=== PATIENT | male | born 1970 | race Caucasian/White ===

== ENCOUNTER → 2018-03-10 06:38 | Outpatient (CLI) | payer OTHER, SELFPAY ==
--- NOTE | 2018-03-10 06:46 | CT_ITS ---
STUDY: CT ABDOMEN AND PELVIS WITH AND WITHOUT CONTRAST REASON FOR EXAM: Male, 48 years old. Right groin mass RADIATION DOSAGE (If Supplied By Facility): CTDIvol = ( 23.21 ) mGy, DLP = ( 2510.3 ) mGycm TECHNIQUE: Transaxial images were obtained from the dome of the diaphragm to the symphysis pubis without oral contrast. 100 ml of Isovue 300 contrast was administered. Sagittal and coronal images were reconstructed. Individualized dose optimization techniques were used for this CT. COMPARISON: None. FINDINGS: The visualized lung bases are clear. The visualized portions of the heart and pericardium are within normal limits. There are no calcified gallstones present. The liver is within normal limits. There are no suspicious hepatic lesions. The spleen is normal in size. The pancreas is within normal limits. The adrenal glands are within normal limits. There are no renal or ureteral stones. There is no hydronephrosis. There are no focal renal lesions. Normal visualized stomach. There is no bowel obstruction or inflammation. The appendix is visualized and appears normal. The aorta is normal in caliber. There is no abdominal or pelvic free air, free fluid, fluid collection or lymphadenopathy. There are no destructive osseous lesions. There is no abnormal soft tissue mass identified in the right groin. CT/CT Abd/Pelvis W/WO Contrast IMPRESSION: Unremarkable CT of the abdomen and pelvis performed without and with contrast. No soft tissue mass identified. Electronically Signed: Star Bedoya, at 18:53 EDT Tel , Service support ,
[2018-03-10 08:00] LABS: PSA,Total - Annual Screen 2.16 ng/mL (0.00-4.00)
== END ==
PROVIDERS: Family Provider Family Medicine; PCP Family Medicine; Visit Provider Nurse Practitioner Adult Health
DX: R19.09 Other intra-abdominal and pelvic swelling, mass and lump (principal); R10.2 Pelvic and perineal pain; Z87.442 Personal history of urinary calculi; Z12.5 Encounter for screening for malignant neoplasm of prostate
CPT/HCPCS: 36415; 74178; 84153; Q9967; G0103

== ENCOUNTER → 2018-04-29 10:11 | Outpatient (CLI) | payer OTHER, SELFPAY ==
[2018-04-29 12:43] LABS: Erythrocyte Sedimentation Rate 9 mm/hr (0-20)
[2018-04-29 12:53] LABS: Vitamin B12 563 pg/mL (211-911); Vitamin D,25 Hydroxy 22.5 ng/mL (29.95-100.01)
[2018-04-29 12:54] LABS: Absolute Lymphocyte Count 1.22 X10^3/ul (0.83-4.51); Absolute Neutrophil Count 2.8 X10^3/uL (2.0-7.7); Basophil# 0.04 X10^3/uL; Basophil% 0.9 % (0-1); Eosinophil# 0.15 X10^3/uL; Eosinophils% 3.4 % (0-5); Hemoglobin 14.5 g/dl (13.0-16.5); Lymphocyte # 1.22 X10^3/ul (4.0); Lymphocyte % 27.4 % (19-41); Mean Corp Hgb Conc 33.7 g/gl (32-36); Mean Corpuscular Hgb 29.7 pg (27.0-32.0); Mean Corpuscular Volume 87.9 fL (80-94); Mean Platelet Vol. 9.8 fl (6.2-12.0); Monocyte# 0.27 X10^3/uL; Monocyte% 6.1 % (0-10); Neutrophil # 2.77 X10^3/uL (2.7-7.7); Neutrophil % 62.2 % (47-70); Platelet Count 172 K/mm3 (150-450); RBC Distribution Width CV 12.8 % (11.6-14.6); RBC Distribution Width SD 40.9 fl (35.1-43.9); Red Blood Count 4.89 M/mm3 (4.6-6.2); White Blood Count 4.5 K/mm3 (4.4-11.0)
[2018-04-29 12:57] LABS: POSITIVE COUNT NO; POSITIVE DIFFERENTIAL NO; POSITIVE MORPHOLOGY NO
[2018-04-29 12:59] LABS: ALB/GLOB Ratio 1.1 RATIO (0.9-2.4); AST(SGOT) 20 U/L (15-37); Alanine Aminotransfer ALT/SGPT 25 U/L (16-61); Albumin, Serum 3.7 g/dL (3.2-5.0); Alkaline Phosphatase 49 U/L (45-117); Anion Gap 6 (5-15); BUN 15 mg/dL (7-18); BUN/Creat Ratio 13.3 RATIO (10-20); Calcium,Total 9.2 mg/dL (8.5-10.1); Chloride 107 mmol/L (98-107); Creatinine, Serum 1.13 mg/dL (0.70-1.30); EST Glomerular Filtration Rate 73 mL/min (>60); Est Glom Filt Rate - Afr Amer 88 mL/min (>60); Globulin 3.5 g/dL (2.2-4.2); Glucose 92 mg/dL (74-106); Iron 71 ug/dL (65-175); Potassium 4.2 mmol/L (3.5-5.1); Protein, Total 7.2 g/dL (6.4-8.2); Sodium Level 140 mmol/L (136-145); Thyroid Stim Hormone (TSH) 4.02 uIU/mL (0.358-3.74)
[2018-04-30 10:25] LABS: Free T3 2.6 pg/mL (2.18-3.98)
== END ==
PROVIDERS: Family Provider Family Medicine; PCP Family Medicine; Visit Provider Family Medicine
DX: R10.31 Right lower quadrant pain (principal); R53.83 Other fatigue; R79.89 Other specified abnormal findings of blood chemistry
CPT/HCPCS: 36415; 80053; 82306; 82533; 82607; 83540; 84439; 84443; 84481; 85025; 85652

== ENCOUNTER → 2018-09-24 11:38 | Outpatient (CLI) | payer OTHER, SELFPAY ==
[2018-09-24 14:21] LABS: Free T3 2.8 pg/mL (2.18-3.98); T4 Free Direct 0.88 ng/dL (0.76-1.46); Thyroid Stim Hormone (TSH) 2.62 uIU/mL (0.358-3.74)
== END ==
PROVIDERS: Family Provider Family Medicine; PCP Family Medicine; Visit Provider Family Medicine
DX: R53.83 Other fatigue (principal)
CPT/HCPCS: 36415; 84439; 84443; 84481

== ENCOUNTER → 2018-10-19 13:19 | Outpatient (CLI) | payer OTHER, SELFPAY ==
--- NOTE | 2018-10-19 13:29 | MRI_ITS ---
STUDY: MRI LEFT ELBOW REASON FOR EXAM: Male, 48 years old. Pain after lifting. Evaluate biceps tear. TECHNIQUE: Standardized fat and water weighted pulse sequences were obtained in all 3 orthogonal planes. COMPARISON: None. FINDINGS: Normal radio-capitellum articulation. Normal radial collateral ligamentous complex. There is tendinosis with tendon thickening of the common extensor tendon. Normal ulnotrochlear articulation. Normal ulnar collateral ligamentous complex. Normal common flexor tendon. The cubital tunnel is normal, with a normal ulnar nerve. There is tendinosis with a complete tear of distal insertion of the biceps tendon. There is retraction of 4.5 cm, series 7 images through . There is moderate fluid and edema at the musculotendinous junction. Normal brachialis musculotendinous insertion. Normal triceps tendon and teno-osseous insertion. Normal olecranon process. The visualized distal humerus, proximal radius, and ulna are normal. The visualized muscles of the distal arm and proximal forearm are normal. The soft tissue structures are unremarkable. MRI/Upper Ext Joint Only(Routine) IMPRESSION: Biceps tendon rupture with retraction. Electronically Signed: Rex Roche MD at 20:07 EST , Service support ,
== END ==
PROVIDERS: Family Provider Family Medicine; PCP Family Medicine; Referring Provider Family Medicine; Visit Provider Family Medicine
DX: S46.112A Strain of muscle, fascia and tendon of long head of biceps, left arm, initial encounter (principal)
CPT/HCPCS: 73221

== ENCOUNTER 2018-11-04 10:32 | Day surgery (SDC) | payer OTHER, SELFPAY ==
[2018-11-04] VITALS (7 sets, daily range): BP systolic 126–156; BP diastolic 81–100; PULSE 54–70; RESP 16–18; TEMP 36.2–36.9; O2SAT 96–100; BMI 35.0
[2018-11-04] MEDS: Cefazolin 2 GM in 0.9% Normal Saline 100 ML IV (12:40)
--- NOTE | 2018-11-04 13:04 | RAD_ITS ---
STUDY: X-RAY - LEFT ELBOW REASON FOR EXAM: Male, 48 years old. Left distal biceps repair. TECHNIQUE: A single interoperative view(s) of the elbow. COMPARISON: MRI of the left elbow, October 19, 2018. FINDINGS: Study demonstrates a lucency in the proximal humerus with a small adjacent metallic focus consistent with biceps tendon repair. There is air in the surrounding soft tissues. Please refer to the operative report for further details. RAD/Elbow 2 Views IMPRESSION: Biceps tendon repair in the OR. Electronically Signed: Kevon Ag DO at 17:33 EST Tel [phone], Service support ,
--- NOTE | 2018-11-04 14:18 | PCM.OPRPT ---
Report of Operation Date of Procedure: 11/04/18 Pre-Operative Diagnosis: Left distal biceps tendon rupture Post-Operative Diagnosis: Left distal biceps tendon rupture Surgery/Procedure Performed:: Left distal biceps tendon repair Description of Surgical Findings:: Anatomic repair software validation engineer: Jason Esquivel Type of Anesthesia:: General Anesthesiologist: Nick Blanchard Special Medications: Ancef Estimated Blood Loss (mL): 5 Fluids Replaced: 1100 mL crystalloid Description of Procedure: On the date of the procedure patient's left arm was marked in the preoperative area. Patient was taken back to the operating room where there transferred to the table in the supine position. He had received a block for postoperative pain control. Anesthesia assumed control of the C-spine airway and remained to control throughout the remainder of the procedure. After patient was appropriately anesthetized tourniquet was placed in the left upper arm. All bony prominences were identified well-padded and the left upper extremity was prepped in a sterile fashion for surgery. After scrubbing the surgeons reentered the room the left upper extremity was draped in a standard orthopedic fashion. Incision was marked out in a transverse fashion just distal to the antecubital fossa crease. Timeout was called and everyone agreed upon the side, the site, and the procedure be performed, patient's identity and antibiotics given. Esmarch bandage was used to exsanguinate the extremity. Elbow was flexed and tourniquet was placed up to 250 mmHg. Incision was taken of the skin blunt dissection was taken down through subcutaneous tissues. There was a large vein that needed to be coagulated. After this was done we were able to identify the tendon. After the tendon was then identified the scar tissue around it was loosened up and the tendon was mobilized. This was done with blunt dissection. Bulbous end of the tendon was debrided. The Arthrex fiber loop was then sewn to the end of the tendon in the standard fashion. After this was done we directed our attention to the radial tuberosity. Dissection was taken down so we could palpate the tuberosity. Retractors were placed with a [employer] radially so as not to place any retractors radially around the radial head. Medially Hohmann retractor was placed. Once were able to identify the tuberosity we cleaned up the remaining debris. The drill was placed bicortically and live x-ray was used to verify placement of the drill. Once this was done we measured the width of the tendon which was 7.5 mm. A 7.5 mm acorn drill was used to drill the near cortex. Once this was done the Endobutton was fashioned to the fiber loop suture and placed through both cortices. It was flipped on the far cortices and the elbow was flexed and the tendon was taken down and fastened into the bone tunnel. Once were happy with the position of the tendon the FiberWire was tied back onto the tendon. Elbow was now allowed to fully extend after this. Wound was rula irrigated out normal saline. 2-0 Vicryl was used to close the subcuticular layer and Monocryl was used to close the skin with Steri-Strips. Elbow was placed in a posterior splint at 90 degrees. Patient was awakened by anesthesia after tourniquet was let down and transferred to the PACU for recovery in stable condition. Postoperative plan: Patient is nonweightbearing for a total of 6 weeks. At 2 weeks we will remove the splint and start range of motion exercises. 6 weeks we can start strengthening. Physician chemist assistant played a vital role throughout this case. He was important in positioning the extremity and the patient preoperatively. He was also important positioning the extremity intraoperatively maintain the appropriate supination of the wrist in order to protect the PIN. He was also important in retracting vital soft tissues in order to limit possibility of neurovascular damage. He was also vital and closure and splinting the patient under my direct supervision. Grafts/Implants Used: Arthrex Endobutton - Complications No intraoperative complications - Admit VTE Documentation VTE Present on Admission: No VTE Mechan Device Prophylaxis: SCD's VTE Pharm Prophylaxis ordered?: No Reason prophylaxis not ordered:: Treatment Not Indicated
--- NOTE | 2018-11-04 14:26 | OP.PCM_ITS ---
Report of Operation Date of Procedure: 11/04/18 Pre-Operative Diagnosis: Left distal biceps tendon rupture Post-Operative Diagnosis: Left distal biceps tendon rupture Surgery/Procedure Performed:: Left distal biceps tendon repair Description of Surgical Findings:: Anatomic repair associate professor of history: Jason Esquivel Type of Anesthesia:: General Anesthesiologist: Nick Blanchard Special Medications: Ancef Estimated Blood Loss (mL): 5 Fluids Replaced: 1100 mL crystalloid Description of Procedure: On the date of the procedure patient's left arm was marked in the preoperative area. Patient was taken back to the operating room where there transferred to the table in the supine position. He had received a block for postoperative pain control. Anesthesia assumed control of the C-spine airway and remained to control throughout the remainder of the procedure. After patient was appropriately anesthetized tourniquet was placed in the left upper arm. All bony prominences were identified well-padded and the left upper extremity was prepped in a sterile fashion for surgery. After scrubbing the surgeons reentered the room the left upper extremity was draped in a standard orthopedic fashion. Incision was marked out in a transverse fashion just distal to the antecubital fossa crease. Timeout was called and everyone agreed upon the side, the site, and the procedure be performed, patient's identity and antibiotics given. Esmarch bandage was used to exsanguinate the extremity. Elbow was flexed and tourniquet was placed up to 250 mmHg. Incision was taken of the skin blunt dissection was taken down through subcutaneous tissues. There was a large vein that needed to be coagulated. After this was done we were able to identify the tendon. After the tendon was then identified the scar tissue around it was loosened up and the tendon was mobilized. This was done with blunt dissection. Bulbous end of the tendon was debrided. The Arthrex fiber loop was then sewn to the end of the tendon in the standard fashion. After this was done we directed our attention to the radial tuberosity. Dissection was taken down so we could palpate the tuberosity. Retractors were placed with a [employer] radially so as not to place any retractors radially around the radial head. Medially Hohmann retractor was placed. Once were able to identify the tuberosity we cleaned up the remaining debris. The drill was placed bicortically and live x-ray was used to verify placement of the drill. Once this was done we measured the width of the tendon which was 7.5 mm. A 7.5 mm acorn drill was used to drill the near cortex. Once this was done the Endobutton was fashioned to the fiber loop suture and placed through both cortices. It was flipped on the far cortices and the elbow was flexed and the tendon was taken down and fastened into the bone tunnel. Once were happy with the position of the tendon the FiberWire was tied back onto the tendon. Elbow was now allowed to fully extend after this. Wound was rula irrigated out normal saline. 2-0 Vicryl was used to close the subcuticular layer and Monocryl was used to close the skin with Steri-Strips. Elbow was placed in a posterior splint at 90 degrees. Patient was awakened by anesthesia after tourniquet was let down and transferred to the PACU for recovery in stable condition. Postoperative plan: Patient is nonweightbearing for a total of 6 weeks. At 2 weeks we will remove the splint and start range of motion exercises. 6 weeks we can start strengthening. Physician certified physical therapist assistant played a vital role throughout this case. He was important in positioning the extremity and the patient preoperatively. He was also important positioning the extremity intraoperatively maintain the appropriate supination of the wrist in order to protect the PIN. He was also important in retracting vital soft tissues in order to limit possibility of neurovascular damage. He was also vital and closure and splinting the patient under my direct supervision. Grafts/Implants Used: Arthrex Endobutton - Complications No intraoperative complications - Admit VTE Documentation VTE Present on Admission: No VTE Mechan Device Prophylaxis: SCD's VTE Pharm Prophylaxis ordered?: No Reason prophylaxis not ordered:: Treatment Not Indicated
[2018-11-04] MEDS: Ketorolac 30 MG/ML Syringe IV (14:46)
== END 2018-11-04 16:04 | disposition home or self-care (01) ==
LOC: SDC 10:32 → AC 10:33
PROVIDERS: Family Provider Family Medicine; PCP Family Medicine; Referring Provider Specialist; Visit Provider Specialist
PROC: (CPT 24341; principal; 2018-11-04 12:30)
DX: S46.212A Strain of muscle, fascia and tendon of other parts of biceps, left arm, initial encounter (principal); X50.9XXA Other and unspecified overexertion or strenuous movements or postures, initial encounter; Y93.89 Activity, other specified; Y92.9 Unspecified place or not applicable; Y99.9 Unspecified external cause status; F41.9 Anxiety disorder, unspecified; F32.9 Major depressive disorder, single episode, unspecified; M19.90 Unspecified osteoarthritis, unspecified site; I10 Essential (primary) hypertension; E78.00 Pure hypercholesterolemia, unspecified; Z79.899 Other long term (current) drug therapy; Z79.82 Long term (current) use of aspirin
CPT/HCPCS: 24342; 73070; 76000; J7120; J2405